=== PATIENT | male | born 1955 | race Caucasian/White ===

== ENCOUNTER → 2023-12-24 14:04 | Outpatient (BNVA) | payer MEDICARE, SELFPAY | PROVIDERS: PCP Family Medicine; Visit Provider Podiatrist Foot & Ankle Surgery | DX: G62.9 Polyneuropathy, unspecified; B35.1 Tinea unguium; I87.2 Venous insufficiency (chronic) (peripheral); S90.852A Superficial foreign body, left foot, initial encounter; X58.XXXA Exposure to other specified factors, initial encounter; M72.2 Plantar fascial fibromatosis | CPT/HCPCS: 73630; 99203 ==

== ENCOUNTER → 2024-01-02 11:49 | Outpatient (BNVA) | payer MEDICARE, SELFPAY | PROVIDERS: PCP Family Medicine; Visit Provider Podiatrist Foot & Ankle Surgery | DX: L97.522 Non-pressure chronic ulcer of other part of left foot with fat layer exposed (principal); S91.332A Puncture wound without foreign body, left foot, initial encounter; S90.852A Superficial foreign body, left foot, initial encounter; X58.XXXA Exposure to other specified factors, initial encounter | CPT/HCPCS: 28190; 87070; 87075; 87077; 87186; 87205; 99203 ==

== ENCOUNTER → 2024-01-16 13:17 | Outpatient (BNVA) | payer MEDICARE, SELFPAY | PROVIDERS: PCP Family Medicine; Visit Provider Podiatrist Foot & Ankle Surgery | DX: B35.1 Tinea unguium; I87.2 Venous insufficiency (chronic) (peripheral); S90.852A Superficial foreign body, left foot, initial encounter; G62.9 Polyneuropathy, unspecified; M72.2 Plantar fascial fibromatosis | CPT/HCPCS: 99213 ==

== ENCOUNTER → 2024-02-27 13:34 | Outpatient (BNVA) | payer MEDICARE, SELFPAY | PROVIDERS: PCP Family Medicine; Visit Provider Podiatrist Foot & Ankle Surgery | DX: B35.1 Tinea unguium; I87.2 Venous insufficiency (chronic) (peripheral); S90.852A Superficial foreign body, left foot, initial encounter; G62.9 Polyneuropathy, unspecified; M72.2 Plantar fascial fibromatosis; X58.XXXA Exposure to other specified factors, initial encounter | CPT/HCPCS: 99213 ==

== ENCOUNTER → 2024-10-08 14:39 | Outpatient (BNVA) | payer MEDICARE, SELFPAY | PROVIDERS: PCP Family Medicine; Visit Provider Podiatrist Foot & Ankle Surgery | DX: L60.8 Other nail disorders (principal); B35.1 Tinea unguium; I87.2 Venous insufficiency (chronic) (peripheral); G62.9 Polyneuropathy, unspecified; M72.2 Plantar fascial fibromatosis | CPT/HCPCS: 99213 ==

== ENCOUNTER → 2024-12-29 14:34 | Outpatient (BNVA) | payer MEDICARE, SELFPAY | PROVIDERS: PCP Family Medicine; Visit Provider Nurse Practitioner Family | DX: L88 Pyoderma gangrenosum (principal); L82.1 Other seborrheic keratosis; D23.39 Other benign neoplasm of skin of other parts of face; I87.2 Venous insufficiency (chronic) (peripheral); L90.5 Scar conditions and fibrosis of skin | CPT/HCPCS: 11102; 17004; 69100; 99203 ==

== ENCOUNTER → 2024-12-31 14:50 | Outpatient (BNVA) | payer MEDICARE, SELFPAY | PROVIDERS: PCP Family Medicine; Visit Provider Podiatrist Foot & Ankle Surgery | DX: I73.9 Peripheral vascular disease, unspecified (principal); B35.1 Tinea unguium; L84 Corns and callosities; I87.2 Venous insufficiency (chronic) (peripheral); G62.9 Polyneuropathy, unspecified; M72.2 Plantar fascial fibromatosis | CPT/HCPCS: 11055; 11721 ==

== ENCOUNTER → 2025-01-07 07:56 | Outpatient (BNVA) | payer MEDICARE, SELFPAY | PROVIDERS: PCP Family Medicine; Visit Provider Dermatology | DX: L88 Pyoderma gangrenosum (principal); D04.22 Carcinoma in situ of skin of left ear and external auricular canal; C44.519 Basal cell carcinoma of skin of other part of trunk | CPT/HCPCS: 12034; 17313; 99213 ==

== ENCOUNTER → 2025-02-24 14:46 | Outpatient (BNVA) | payer MEDICARE, SELFPAY | PROVIDERS: PCP Family Medicine; Visit Provider Nurse Practitioner Family | DX: L88 Pyoderma gangrenosum (principal) | CPT/HCPCS: 99214 ==

== ENCOUNTER → 2025-03-18 14:08 | Outpatient (BNVA) | payer MEDICARE, SELFPAY | PROVIDERS: PCP Family Medicine; Visit Provider Podiatrist Foot & Ankle Surgery | DX: B35.1 Tinea unguium (principal); I87.2 Venous insufficiency (chronic) (peripheral); G62.9 Polyneuropathy, unspecified; M72.2 Plantar fascial fibromatosis; I73.9 Peripheral vascular disease, unspecified | CPT/HCPCS: 11721; 99213 ==

== ENCOUNTER → 2025-05-27 15:36 | Outpatient (BNVA) | payer MEDICARE, SELFPAY | PROVIDERS: PCP Family Medicine; Visit Provider Podiatrist Foot & Ankle Surgery | DX: I73.9 Peripheral vascular disease, unspecified (principal); B35.1 Tinea unguium; I87.2 Venous insufficiency (chronic) (peripheral); G62.9 Polyneuropathy, unspecified; M72.2 Plantar fascial fibromatosis | CPT/HCPCS: 11721 ==

== ENCOUNTER 2025-06-07 10:20 | Outpatient (CLI) | payer MEDICARE, SELFPAY ==
[2025-06-07 11:15] LABS: Hematocrit 42.3 % (37-53); Hemoglobin 14.70 g/dL (11.27-16.99); Mean Corpuscular HGB Conc 34.8 g/dL (30-55); Mean Corpuscular Hemoglobin 31.7 pg (27-33); Mean Corpuscular Volume 91.4 fl (82-101); Nucleated Red Blood Cells % 0 %; Platelet Count 208 10^3/cmm (157-399); Red Blood Count 4.63 10^6/uL (3.85-5.65); White Blood Count 5.32 10^3/uL (3.29-11.43)
[2025-06-07 11:31] LABS: Alanine Aminotransferase 10 U/L (0-41); Albumin Level 4.4 g/dL (3.5-5.2); Alkaline Phosphatase 58 U/L (40-130); Anion Gap 14.3 (5-19); Aspartate Amino Transferase 13 U/L (0-40); Blood Urea Nitrogen 20 mg/dL (8-23); Calcium 9.8 mg/dL (8.5-10.5); Carbon Dioxide 26 mmol/L (22-29); Chloride 99 mmol/L (98-107); Globulin 3.1 g/dL (1.3-4.6); Glucose 95 mg/dL (65-115); Osmolality Calculated 282 mOsm/kg (285-295); Potassium 4.3 mmol/L (3.5-5.1); Sodium 135 mmol/L (136-145); Total Protein 7.5 g/dL (6.6-8.7)
== END 2025-06-07 10:21 | disposition home or self-care (01) ==
PROVIDERS: PCP Family Medicine; Visit Provider Dermatology
DX: L88 Pyoderma gangrenosum (principal); I87.2 Venous insufficiency (chronic) (peripheral); D23.39 Other benign neoplasm of skin of other parts of face; L82.1 Other seborrheic keratosis; Z08 Encounter for follow-up examination after completed treatment for malignant neoplasm; Z85.828 Personal history of other malignant neoplasm of skin
CPT/HCPCS: 36415; 80053; 85025; 99214

== ENCOUNTER → 2025-06-15 08:15 | Outpatient (BNVA) | payer MEDICARE, SELFPAY | PROVIDERS: PCP Family Medicine; Visit Provider Dermatology | DX: Z79.899 Other long term (current) drug therapy (principal) | CPT/HCPCS: 80061; 82947; 84550 ==

== ENCOUNTER → 2025-06-23 09:31 | Outpatient (BNVA) | payer MEDICARE, SELFPAY | PROVIDERS: PCP Family Medicine; Visit Provider Dermatology | DX: L88 Pyoderma gangrenosum (principal); Z79.899 Other long term (current) drug therapy | CPT/HCPCS: 99214 ==

== ENCOUNTER → 2025-08-03 09:53 | Outpatient (BNVA) | payer MEDICARE, SELFPAY | PROVIDERS: PCP Family Medicine; Visit Provider Dermatology | DX: L88 Pyoderma gangrenosum (principal); Z79.899 Other long term (current) drug therapy | CPT/HCPCS: 99214 ==

== ENCOUNTER → 2025-08-04 10:00 | Outpatient (BNVA) | payer MEDICARE, SELFPAY | PROVIDERS: PCP Family Medicine; Visit Provider Dermatology | DX: Z79.899 Other long term (current) drug therapy (principal) | CPT/HCPCS: 80048; 80061; 80076; 83735; 84550; 85025 ==